=== PATIENT | male | born 1955 | race Caucasian/White ===

== ENCOUNTER 2018-11-07 20:48 | Emergency (ER) | payer BC ==
[2018-11-07 20:58] VITALS: BP 136/73; PULSE 67; TEMP 97.5; BMI 26.3
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
[2018-11-07] MEDS ORDERED: TETRACAINE 0.5% HCL 0.6ML DROPPER.BOTTLE OD ONE (21:56)
[2018-11-07] MEDS ORDERED: FLUORESCEIN NA 1 EA STRIP OD ONE (21:56)
[2018-11-07] MEDS ORDERED: TETRACAINE 0.5% OPHTH SOLN 2 ML BOTTLE ONE (21:57)
[2018-11-07] MEDS ORDERED: FLUORESCEIN NA 1 EA STRIP ONE (21:57)
[2018-11-07] MEDS ORDERED: DIPHTH,PERTUSS(ACELL),TET 0.5 ML DISP.SYRIN IM ONE ×2 (22:17→22:21)
== END 2018-11-07 22:58 | disposition home or self-care (01) ==
LOC: JERFT 20:48
PROC: 3E0234Z Introduction of Serum, Toxoid and Vaccine into Muscle, Percutaneous Approach (ICD-10-PCS; principal; 2018-11-07)
DX: Z77.018 Contact with and (suspected) exposure to other hazardous metals (principal); S05.01XA Injury of conjunctiva and corneal abrasion without foreign body, right eye, initial encounter; X58.XXXA Exposure to other specified factors, initial encounter; Y93.89 Activity, other specified; Y92.89 Other specified places as the place of occurrence of the external cause
CPT/HCPCS: 90715; 99281-25

== ENCOUNTER 2019-05-10 10:48 | Day surgery (SDC) | payer OTHER, BC ==
[2019-05-09 15:16] VITALS: BMI 25.6
[2019-05-10 13:36] VITALS: TEMP 97.5
[2019-05-10 14:42] VITALS: BP 126/79; PULSE 66
== END 2019-05-10 14:42 | disposition home or self-care (01) ==
LOC: JASU-ENDO 10:48
PROVIDERS: ATTEND Internal Medicine Gastroenterology
PROC: 0DJD8ZZ Inspection of Lower Intestinal Tract, Via Natural or Artificial Opening Endoscopic (ICD-10-PCS; principal; 2019-05-10 12:15)
DX: Z12.11 Encounter for screening for malignant neoplasm of colon (principal); K64.8 Other hemorrhoids; K57.30 Diverticulosis of large intestine without perforation or abscess without bleeding